=== PATIENT | male | born 1945 | race Caucasian/White ===

== ENCOUNTER → 2020-01-17 12:58 | Outpatient (BNVA) | payer OTHER, SELFPAY | PROVIDERS: PCP Emergency Medicine Emergency Medical Services; Visit Provider Internal Medicine Cardiovascular Disease | DX: E78.2 Mixed hyperlipidemia (principal); I25.810 Atherosclerosis of coronary artery bypass graft(s) without angina pectoris; I10 Essential (primary) hypertension; Z95.1 Presence of aortocoronary bypass graft | CPT/HCPCS: 80053; 80061; 83721 ==

== ENCOUNTER → 2021-04-16 08:10 | Outpatient (BNVA) | payer OTHER, SELFPAY | PROVIDERS: PCP Emergency Medicine Emergency Medical Services; Visit Provider Internal Medicine Cardiovascular Disease | DX: I10 Essential (primary) hypertension; Z95.1 Presence of aortocoronary bypass graft; E78.2 Mixed hyperlipidemia; I25.10 Atherosclerotic heart disease of native coronary artery without angina pectoris | CPT/HCPCS: 80061; 80076; 83721 ==

== ENCOUNTER → 2021-07-15 09:11 | Outpatient (BNVA) | payer OTHER, SELFPAY | PROVIDERS: PCP Emergency Medicine Emergency Medical Services; Visit Provider Internal Medicine Cardiovascular Disease | DX: I25.10 Atherosclerotic heart disease of native coronary artery without angina pectoris (principal); I10 Essential (primary) hypertension; E78.2 Mixed hyperlipidemia; Z95.1 Presence of aortocoronary bypass graft; Z87.891 Personal history of nicotine dependence | CPT/HCPCS: 99214 ==

== ENCOUNTER → 2022-07-14 10:12 | Outpatient (BNVA) | payer OTHER, SELFPAY | PROVIDERS: PCP Emergency Medicine Emergency Medical Services; Visit Provider Internal Medicine Cardiovascular Disease | DX: I10 Essential (primary) hypertension (principal); Z95.1 Presence of aortocoronary bypass graft; E78.2 Mixed hyperlipidemia; Z87.891 Personal history of nicotine dependence; Z79.82 Long term (current) use of aspirin | CPT/HCPCS: 99213 ==

== ENCOUNTER → 2022-11-28 10:05 | Outpatient (BNVA) | payer OTHER, SELFPAY | PROVIDERS: PCP Emergency Medicine Emergency Medical Services; Referring Provider Emergency Medicine Emergency Medical Services; Visit Provider Student in an Organized Health Care Education/Training Program | DX: M65.332 Trigger finger, left middle finger; M18.12 Unilateral primary osteoarthritis of first carpometacarpal joint, left hand | CPT/HCPCS: 73130; 99204 ==

== ENCOUNTER 2022-12-25 05:41 | Day surgery (SDC) | payer OTHER, SELFPAY ==
[2022-12-25 06:18] VITALS: BMI 28.1
[2022-12-25] MEDS: acetaminophen 1,000 MG/100 ML PIGGYBACK 400 MG IV (06:19)
[2022-12-25] MEDS: ketorolac 30 mg/mL INJ IVP (06:19)
[2022-12-25] MEDS: scopolamine 1.5 Patch 1 PATCH TRANSDERMA (06:23)
--- NOTE | 2022-12-25 06:23 | W.PM.OPSUD ---
Surgery/Procedure H&P Update DATE OF PROCEDURE: December 25, 2022 DATE H&P PERFORMED: 11/28/22 H&P UPDATE INFORMATION: I have reviewed H&P completed within last 30 days, I have examined patient prior to procedure and No changes to prior documentation PREOP DIAGNOSIS: Left middle finger trigger PRIMARY INDICATION FOR PROCEDURE: Left middle finger trigger PLANNED PROCEDURE: Operation Date: 12/25/22 07:00 Proposed Procedures p Trigger Finger Release(Left Middle Finger)(Left) - Maurisio Willoughby DO
[2022-12-25 06:30] VITALS: BP 132/77; PULSE 69; RESP 18; TEMP 36.8; O2SAT 99
--- NOTE | 2022-12-25 06:41 | ANES.PREANE2 ---
Pre-Anesthetic Assessment Height/Weight: Height 1.91 m Weight 102.058 kg Temp Pulse Resp BP Pulse Ox O2 Del Method 98.2 F 69 18 132/77 99 Room Air 12/25/22 06:30 12/25/22 06:30 12/25/22 06:30 12/25/22 06:30 12/25/22 06:30 12/25/22 06:30 Preop Diagnosis: Left middle finger trigger Operation Date: 12/25/22 07:00 Proposed Procedures p Trigger Finger Release(Left Middle Finger)(Left) - Maurisio Lanier, DO Familial anesthetic complications: None Was Beta Alex taken within 24 hours: N/A Was Clonidine taken within 24 hours: N/A Last intake: Intake Last Liquid Date 12/24/22 Last Liquid Time 21:00 Last Solid Date 12/24/22 Last Solid Time 16:00 Social No alcohol and No tobacco Exam alert, oriented x 3, clear to auscultation bilaterally and regular rate & rhythm Airway Mallampati: Class I Dentition: false CV/HEM Hypertension ICD and CABG X5 Metabolic Hyperlipidemia Anesthetic Plan ASA status: 3 Anesthesia: MAC Risk of > 500 ml blood loss (7ml/kg in children): No Medications/Allergies Home Medications Medication Instructions Recorded Confirmed Last Taken Type aspirin 81 mg tablet,delayed 81 mg PO DAILY 10/19/19 12/24/22 12/18/22 History release (Aspir-) carboxymethylcellulose sodium 0.5 1 drop ophthalmic (eye) BID 10/19/19 12/24/22 12/24/22 History % eye drops in a dropperette cetirizine 10 mg tablet (Allergy 5 mg PO DAILY PRN allergies 10/19/19 12/24/22 12/23/22 History Relief (cetirizine)) furosemide 20 mg tablet 20 mg PO DAILY 10/19/19 12/24/22 12/24/22 History ketotifen fumarate 0.025 % (0.035 1 drop ophthalmic (eye) BID 10/19/19 12/24/22 12/24/22 History %) eye drops lisinopril 5 mg tablet 2.5 mg PO DAILY 10/19/19 12/24/22 12/24/22 History metoprolol tartrate 50 mg tablet 50 mg PO BID 10/19/19 12/24/22 12/24/22 History nitroglycerin 0.4 mg sublingual 0.4 mg sublingual Q5M PRN chest 10/19/19 12/24/22 Unknown Rx tablet pain #25 tabs potassium chloride 20 mEq 20 meq PO DAILY 10/19/19 12/24/22 12/24/22 History tablet,extended release ezetimibe 10 mg tablet (Zetia) 10 mg PO DAILY #30 tabs 01/20/20 12/24/22 12/24/22 Rx cyclobenzaprine 10 mg tablet 10 mg PO BEDTIME 01/14/21 12/24/22 12/23/22 History multivitamin 1 tab PO DAILY 01/14/21 12/24/22 12/24/22 History rosuvastatin 10 mg tablet 10 mg PO DAILY #90 tabs 02/06/21 12/24/22 12/24/22 Rx coenzyme Q10 100 mg capsule (Co 100 mg PO DAILY 07/15/21 12/24/22 12/24/22 History Q-10) magnesium oxide 400 mg PO BID 07/15/21 12/24/22 12/24/22 History Vitamin D3 50 mcg PO DAILY 12/24/22 12/24/22 12/24/22 History ascorbic acid (vitamin C) 1,000 mg 1,000 mg PO DAILY 12/24/22 12/24/22 12/24/22 History tablet (Vitamin C) Allergies Allergy/AdvReac Type Severity Reaction Status Date / Time No Known Allergies Allergy Verified 12/24/22 10:44 Current Medications Generic Name Dose Route Start Last Admin Trade Name Freq PRN Reason Stop Dose Admin Scopolamine 1 patch 12/25/22 06:05 12/25/22 06:23 Scopolamine 1.5 Patch TRANSDERMA 1 patch ONCE PRN Administration anesthetic related nausea PFSH Anesthesia Medical History Coronary artery disease Hyperlipidemia Hypertension Prostate cancer Surgical History H/O circumcision H/O colonoscopy 2017 H/O foot surgery on toes H/O hand surgery H/O removal of cyst left axilla H/O shoulder surgery History of appendectomy History of tonsillectomy S/P CABG x 5 S/P trigger finger release Family History Grandfather Cancer Mother Cancer lung Other CAD (coronary artery disease) Diabetes FH: CABG (coronary artery bypass surgery) Hypertension ICD (implantable cardioverter-defibrillator) in place Myocardial infarction Denies family history of Anesthesia complication Social History Smoking and tobacco/nicotine status: former use of tobacco/nicotine Quit status (tobacco/nicotine): has quit using Year quit tobacco: 1991 Alcohol intake: current Alcohol intake frequency: holidays/special occasions only Substance/Drug Use: never Lives independently: Yes Marital status: Single Current occupational status: retired Data Anesthesia Cardiac Studies: No Data to Display
--- NOTE | 2022-12-25 06:43 | ECG_ITS ---
[facility] Test Date: 2022-12-25 Pat Name: Renaldo Askew Department: Room: Gender: Male Legal Counsel: : 1945 Requested By: Shagufta Dubon Order Number: [id number] Christian MD: Deep Cuellar M.D. Measurements Intervals [place] Rate: 62 P: -6 NM: 255 QRS: -28 QRSD: 131 T: -4 QT: 441 QTc: 449 Interpretive Statements SINUS RHYTHM WITH FIRST DEGREE AV BLOCK RIGHT BUNDLE BRANCH BLOCK [120+ ms QRS DURATION, UPRIGHT V1, 40+ ms S IN I/aVL/V4/V5/V6] INFERIOR MYOCARDIAL INFARCTION , PROBABLY OLD [40+ ms Q WAVE AND/OR ST/T ABNORMALITY IN II/aVF] No previous ECG available for comparison Electronically Signed On 12-26-2022 1:30:13 CDT by Deep Cuellar M.D. [id number]
[2022-12-25 07:47] LABS: Anion Gap 13.4 (5-19); Blood Urea Nitrogen 29 mg/dL (8-23); Calcium 9.5 mg/dL (8.5-10.5); Carbon Dioxide 27 mmol/L (22-29); Chloride 105 mmol/L (98-107); Glucose 107 mg/dL (65-115); Osmolality Calculated 298 mOsm/kg (285-295); Potassium 4.4 mmol/L (3.5-5.1); Sodium 141 mmol/L (136-145)
[2022-12-25] MEDS: ceFAZolin 2,000 MG in sodium chloride 0.9% (plus) 50 ML 100 MG IV (08:00)
[2022-12-25] MEDS: ROPivacaine 0.5% SDV 30 mL 25 MG INJECTION (08:15)
[2022-12-25] MEDS: BUPivacaine 0.5% INJ 10 mL 5 ML INJECTION (08:15)
[2022-12-25 08:56] VITALS: BP 157/79; PULSE 69; RESP 12; TEMP 36.2; O2SAT 99
--- NOTE | 2022-12-25 08:59 | P.BOP_ITS ---
Date of Procedure: 12/25/2022 Surgeon: Maurisio Willoughby DO Supervisor Housecleaner(s): None Procedure(s) performed: Left middle finger trigger release Findings of the procedure(s): Left middle finger trigger, procedure went as planned with left middle finger trigger release Estimated blood loss: 2 cc Specimen(s) removed: None Post-operative diagnosis: Left middle finger trigger
[2022-12-25 09:01] VITALS: BP 175/90; PULSE 69; RESP 15; O2SAT 98
[2022-12-25 09:06] VITALS: BP 174/84; PULSE 66; RESP 16; O2SAT 99
[2022-12-25 09:11] VITALS: BP 186/88; PULSE 65; RESP 16; TEMP 36.3; O2SAT 100
--- NOTE | 2022-12-25 09:12 | PM.OP ---
Operative Report Date of procedure: December 25, 2022 Pre-op diagnosis: Left middle finger trigger Surgeon: Maurisio Willoughby DO Procedure: Post-op diagnosis: Same Procedure done: Left middle finger?trigger?release Surgeon: Maurisio Willoughby DO Estimated blood loss: 2cc Tourniquet time 9mins Complications: None Condition: stable Disposition: same day Brief History: Patient's been seen and worked up in the outpatient setting and findings consistent with preoperative diagnosis of left middle finger?trigger.? He is failed conservative treatment.? Continues to have mechanical locking and catching.? Severe pain as well.? We talked about treatment options nonoperative versus operative intervention.? ?Patient understands the risk benefits complication alternatives of surgical nonsurgical treatment options.? Understanding his risks with surgery he elects proceed with surgical intervention.? Consent obtained in the office.? Here today to proceed with surgical intervention.? All questions answered. Procedure: Patient was seen and evaluated in the preoperative holding area.? Consent was reviewed and signed with patient.? Seen evaluated by Anesthesia Department.? Once cleared for surgery was brought back to the operative suite.? Placed in supine position on the OR table all bony prominences well-padded patient properly secured to the bed.? Patient's left arm was then placed to the armboard.? A nonsterile tourniquet applied to the left upper arm.? Patient's left upper extremity was then prepped and draped in standard orthopedic fashion.? Final timeout performed.? Patient received appropriate preoperative antibiotics. Esmarch tourniquet was used exsanguinate the left upper extremity tourniquet insufflated to 250 mmHg. Under sterile aseptic technique local digital block was performed to the left middle finger.? Once appropriately anesthetized a standard oblique incision was made centering over the A1 tosha following patient's flexor crease.? Sharp scalpel incision was made only through skin and then switched to Littler dissection scissors and spread longitudinally directly over the flexor tendon sheath.? I then mobilized both radially and ulnarly and Kasdan retractors were used and placed by my phlebotomist lab assistant to protect neurovascular bundle.? Next I visualized the A1 tosha and this was incised with a scalpel.? I then switched to dissection scissors and released the A1 tosha both proximally as well as distally to its entirety.? Significant tendon sheath fluid was noted consistent with inflammation.? Mild fraying of the flexor tendons noted but no tear.? At this point I utilized a rag nail and pulled the tendons FDS and FDP out of the incision and no?triggering was noted.? I then had anesthesia wake up the patient and patient was able to actively flex and extend with no?triggering.? This point thorough irrigation was performed.? Tourniquet deflated hemostasis satisfactory with bipolar.? I then subsequently closed the incision with interrupted nylon suture.? Xeroform 4 x 4's, Kerlix and an Thuan wrap was applied for a bulky soft dressing.? Patient was then subsequently awakened from anesthesia and taken to PACU in stable condition tolerated procedure without issues. Disposition: Patient taken back in stable condition recovering well.? Patient will receive appropriate discharge instruction as well as pain medication postoperatively.? Patient to follow-up with me in the office in 2 weeks for repeat evaluation and incision check.? Patient understands that any questions or concerns and contact the office.? All questions answered.
[2022-12-25 09:15] VITALS: BP 178/90; PULSE 68; RESP 18; TEMP 36.2; O2SAT 98
--- NOTE | 2022-12-25 09:45 | ANE.PACU2 ---
Inpatient post-anesthesia follow up: Airway intact: Yes Vital signs: Temperature 97.2 F Pulse Rate 68 Respiratory Rate 18 Blood Pressure 178/90 Pulse Oximetry 98 Oxygen Delivery Me thod Room Air Oxygen Flow Rate Fraction of Inspir ed Oxygen Hydration adequate: Yes Nausea and vomiting: No Pain level: 1 Mental status: Baseline
== END 2022-12-25 09:44 | disposition home or self-care (01) ==
PROVIDERS: Anesthesiology; PCP Emergency Medicine Emergency Medical Services; Visit Provider Student in an Organized Health Care Education/Training Program
PROC: (CPT 26055; principal; 2022-12-25 07:00)
DX: M65.332 Trigger finger, left middle finger (principal); I10 Essential (primary) hypertension; Z95.1 Presence of aortocoronary bypass graft; E78.5 Hyperlipidemia, unspecified; Z79.82 Long term (current) use of aspirin; I25.10 Atherosclerotic heart disease of native coronary artery without angina pectoris; Z85.46 Personal history of malignant neoplasm of prostate; Z87.891 Personal history of nicotine dependence
CPT/HCPCS: 26055; 36415; 80048; 93005; J0131; J0690; J1885; J2704; J2795; J3010; J3490

== ENCOUNTER 2023-01-13 06:00 | Outpatient (CLI) | payer OTHER, SELFPAY | END 2023-01-13 06:01 | disposition home or self-care (01) | LOC: SOT 01-15 09:34 | PROVIDERS: PCP Emergency Medicine Emergency Medical Services; Visit Provider Physician Assistant | DX: Z47.89 Encounter for other orthopedic aftercare (principal) | CPT/HCPCS: 97760; 99024; L3923 ==

== ENCOUNTER 2023-01-15 12:23 | Outpatient (RCR) | payer OTHER, SELFPAY | END 2023-02-05 23:59 | disposition home or self-care (01) | LOC: SOT 12:23 | PROVIDERS: PCP Emergency Medicine Emergency Medical Services; Visit Provider Physician Assistant | DX: Z47.89 Encounter for other orthopedic aftercare (principal); M65.332 Trigger finger, left middle finger | CPT/HCPCS: 97022; 97110; 97140; 97165 ==

== ENCOUNTER → 2023-01-27 14:06 | Outpatient (BNVA) | payer OTHER, SELFPAY | PROVIDERS: PCP Emergency Medicine Emergency Medical Services; Visit Provider Internal Medicine Cardiovascular Disease | DX: I25.10 Atherosclerotic heart disease of native coronary artery without angina pectoris (principal); I10 Essential (primary) hypertension; E78.2 Mixed hyperlipidemia; Z95.1 Presence of aortocoronary bypass graft; Z87.891 Personal history of nicotine dependence | CPT/HCPCS: 99214 ==

== ENCOUNTER 2023-02-22 21:43 | Emergency (ER) | payer OTHER, SELFPAY ==
[2023-02-22 21:48] VITALS: BP 200/107; PULSE 117; RESP 18; TEMP 38.1; O2SAT 96; BMI 28.3
--- NOTE | 2023-02-22 23:06 | XRR_ITS ---
PROCEDURE INFORMATION: Exam: XR Chest Exam date and time: 02/22/2023 11:11 PM Age: 77 years old Clinical indication: Fever and shortness of breath; Prior surgery; Surgery date: 6+ months; Surgery type: Cabg. Coronary stent; Patient HX: C/O SOB with fever; Additional info: SOA, SOA with fever TECHNIQUE: Imaging protocol: Radiologic exam of the chest. Views: 1 view. COMPARISON: No relevant prior studies available. FINDINGS: Lungs: Left lower lobe atelectasis or early infiltrate. Pleural spaces: Small right pleural effusion. No pneumothorax. Heart/Mediastinum: No cardiomegaly. Atherosclerotic disease of the thoracic aorta Bones/joints: Patient is status post median sternotomy.. Intraperitoneal space: There is no free intraperitoneal air. XR/XR chest 1V [id number] IMPRESSION: 1. Small right pleural effusion. 2. Left lower lobe atelectasis or early infiltrate.
--- NOTE | 2023-02-22 23:13 | ED_ITS ---
HPI - Fever 2 General: Chief Complaint: Fever Stated Complaint: fever,shakes,dry mouth Time Seen by Provider: 02/22/23 22:26 Source: patient Mode of arrival: ambulatory Limitations: no limitations History of Present Illness: Patient presents to the emergency department today for evaluation treatment of complaints of chills and chest tightness. Patient reports that after confucianism this afternoon he went to the grocery store. He states he came home and made lunch and this afternoon while resting began feeling chilled. He states he had a temperature of approximately 103 when he checked it but his temperature was lower upon arrival here in the ER. He states he was feeling somewhat tight in his chest and has had a little bit of coughing. He endorses nasal congestion but reports weeks of sinus drainage-especially at night while he is laying down. Patient is unsure of any known direct ill contacts but states he does go to the [facility] quite a bit. Patient has not had vomiting or diarrhea. He denies chest pains. Patient denies taking any Tylenol, ibuprofen, or cold medication prior to arrival. Patient does take blood pressure medications but states he often has episodes of acutely high and acutely low blood pressure readings. Review of Systems 2 General: Reports: 10 or more systems reviewed and unremarkable except in HPI and below PFSH ED 2 PFSH: Medical History Prostate cancer Coronary artery disease Hyperlipidemia Hypertension Surgical History H/O hand surgery History of appendectomy History of tonsillectomy H/O foot surgery on toes H/O shoulder surgery H/O colonoscopy 2018 H/O circumcision S/P trigger finger release H/O removal of cyst left axilla S/P CABG x 5 Family History Grandfather Cancer Mother Cancer lung Other CAD (coronary artery disease) Diabetes FH: CABG (coronary artery bypass surgery) Hypertension ICD (implantable cardioverter-defibrillator) in place Myocardial infarction Denies family history of Anesthesia complication Social History Smoking and tobacco/nicotine status: former use of tobacco/nicotine Quit status (tobacco/nicotine): has quit using Year quit tobacco: 1991 Alcohol intake: current Alcohol intake frequency: holidays/special occasions only Substance/Drug Use: never Lives independently: Yes Marital status: Single Current occupational status: retired Physical Exam 2 Const: COMMON NORMALS: no acute distress, patient oriented x3 and alert O THER: Patient is extremely social and pleasant. Eye: COMMON NORMALS: Equal, round and reactive pupils present, EOMs intact bilaterally and conjunctivae normal CONJUNCTIVA: Yes conjunctivae normal P UPIL: Yes Equal, round and reactive pupils present Neck/C-Spine: COMMON NORMALS: no JVD Lymph: LYMPHATIC: no lymphadenopathy noted Resp: COMMON NORMALS: normal respiratory effort, No retractions and No use of accessory muscles Cardio: COMMON NORMALS: no JVD and regular rate RATE: regular rate GI: OTHER: Abdomen soft. Normoactive bowel sounds. Nontender. : COMMON NORMALS: Yes no CVA tenderness BLADDER/KIDNEY EXAM: Yes no CVA tenderness Back/Pelvis: COMMON NORMALS: no CVA tenderness, thoracic and lumbar spine normal to inspection and thoraco-lumbar ROM normal Extremity: COMMON NORMALS: normal to inspection, full ROM and no pedal edema NARRATIVE EXTREMITY EXAM: Patient is independently ambulatory and weightbearing here throughout the department. Neuro: COMMON NORMALS: patient oriented x3 SENSORIUM/ORIENTATION: Yes alert Skin: COMMON NORMALS: no rashes or lesions noted and turgor normal GENERAL SKIN EXAM: no rashes or lesions noted and turgor normal Course 2 Vital Signs: Vital signs: Vital Signs Temperature 100.5 F H 02/22/23 21:48 Pulse Rate 97 02/22/23 23:30 Respiratory Rate 18 02/22/23 21:48 Blood Pressure 200/107 02/22/23 21:48 Pulse Oximetry 97 02/22/23 23:30 Oxygen Delivery Me thod Room Air 02/22/23 23:30 MDM - Fever Medical Decision Making Patient presented to the emergency department today with complaints of chills, fever, and cough. Chest x-ray was concerning for developing left lower lobe pneumonia. Patient reports he has had pneumonia several times in the past. He has had respiratory symptoms for quite some time but, only started having chills and fever tonight. Patient also tested positive for COVID. Discussed the different treatment options we have. First dose of doxycycline provided to the patient for his pneumonia here in the emergency department with the rest being sent to his pharmacy to be picked up and continued in the morning. However, with his past cardiac history, I do think would be a good idea for him to take the antiviral medication. Prescription for Paxlovid sent to the pharmacy to also be picked up and continued in the morning. Patient does have some cardiac medications which should be monitored while he is on Paxlovid so I did request he have an appointment/follow-up with his primary care doctor this week. I also requested he notify them of his COVID-positive status and pneumonia in the morning so they are aware. Patient is to increase his clear fluid intake. He tolerated p.o. here in the emergency department. He is also to continue monitoring his breathing. Patient should have a general recheck by his primary care doctor after course of illness is complete or, course of treatment is complete to make sure he is noticeably improved. However, in any acute worsening this is to be seen and reevaluated back here in the ER. Patient presented with elevated blood pressure readings however, multiple times at bedside patient had blood pressure readings 130s over 70s prior to discharge. Patient verbalizes understanding and agreement to treatment plan. Differential Diagnosis Unlikely abdominal pain, acute appendicitis, calculus of kidney, diverticulitis, gastroenteritis or small bowel obstruction Lab Data 02/22/23 23:02/22/23: Radiology Impressions Chest X-Ray 02/22/23: IMPRESSION: 1. Small right pleural effusion. 2. Left lower lobe atelectasis or early infiltrate. Laboratory Results WBC 8.14 10^3/uL (3.29-11.43) 02/22/23: RBC 4.79 10^6/uL (3.85-5.65) 02/22/23: Hgb 14.10 g/dL (11.27-16.99) 02/22/23: Hct 42.3 % (37-53) 02/22/23: MCV 88.3 fl (82-101) 02/22/23: MCH 29.4 pg (27-33) 02/22/23: MCHC 33.3 g/dL (30-55) 02/22/23: RDW 11.8 % (12.1-15.1) L 12/17/23 23:30 Plt Count 252 10^3/cmm (157-399) 02/22/23 23:30 MPV 9.6 fL (7.4-10.4) 02/22/23 23:30 Neut % (Auto) 76.2 % 02/22/23 23:30 Lymph % (Auto) 11.8 % 02/22/23 23:30 [place] % (Auto) 10.2 % 02/22/23 23:30 Eos % (Auto) 0.4 % 02/22/23 23:30 Baso % (Auto) 1.2 % 02/22/23 23:30 Neut # (Auto) 6.20 10^3/uL (1.8-7.7) 02/22/23: Lymph # (Auto) 1.0 10^3/uL (0.8-4.8) 02/22/23 23:30 [place] # (Auto) 0.8 10^3/uL (0.2-0.9) 02/22/23 23: Eos # (Auto) 0.0 10^3/uL (0.0-0.8) 02/22/23 23: Baso # (Auto) 0.1 10^3/uL (0.0-0.1) 02/22/23 23: Nucleated RBC % (auto) 0 % 02/22/23: Nucleated RBCs # 0.0 /100WBC 02/22/23 23:30 Sodium 137 mmol/L (136-145) 02/22/23 23:30 Potassium 4.2 mmol/L (3.5-5.1) 02/22/23 23:30 Chloride 102 mmol/L (98-107) 02/22/23 23:30 Carbon Dioxide 25 mmol/L (22-29) 02/22/23 23:30 Anion Gap 14.2 (5-19) 02/22/23 23:30 BUN 17 mg/dL (8-23) 02/22/23 23:30 Creatinine 1.4 mg/dL (0.7-1.2) H 02/22/23 23:30 GFR Calculation Not Reportable 02/22/23 23: Glucose 109 mg/dL (65-115) 02/22/23 23:30 Calculated Osmolality 286 mOsm/kg (285-295) 12/17/23 23:30 Calcium 9.2 mg/dL (8.5-10.5) 02/22/23 23:30 Total Bilirubin 0.4 mg/dL (0.15-1.2) 02/22/23 23:30 AST 39 U/L (0-40) 02/22/23 23:30 ALT 34 U/L (0-41) 02/22/23 23:30 Alkaline Phosphatase 86 U/L (40-130) 02/22/23 23:30 Total Protein 7.8 g/dL (6.6-8.7) 02/22/23 23:30 Albumin 4.5 g/dL (3.5-5.2) 02/22/23 23:30 Globulin 3.3 g/dL (1.3-4.6) 02/22/23 23:30 Urine Color Yellow (Yellow) 02/22/23 23:57 Urine Appearance Clear (CLEAR) 02/22/23 23:57 Urine pH 8 (5-7) H 02/22/23 23:57 Ur Specific [place] 1.010 (1.005-1.030) 02/22/23 23:57 Urine Protein Neg (Negative) 02/22/23 23:57 Urine Glucose (UA) Norm (Normal) 02/22/23 23:57 Urine Ketones Negative (Negative) 02/22/23 23:57 Urine Blood Neg (Negative) 02/22/23 23:57 Urine Nitrate Negative (Negative) 02/22/23 23:57 Urine Bilirubin Neg (Negative) 02/22/23 23:57 Urine Urobilinogen Norm mg/dL (Negative) 02/22/23 23:57 Ur Leukocyte Esterase Negative (Negative) 02/22/23 23:57 SARS-CoV-2 Ag (Rapid) positive (Negative) H 02/22/23 23:37 All radiology interpretation(s) finalized by discharge Discharge Plan Discharge Patient Disposition: Home Clinical Impression: COVID-19 CAP (community acquired pneumonia) Qualifiers: Laterality: left Lung location: lower lobe of lung Qualified Code(s): J18.9 - Pneumonia, unspecified organism Condition: Stable Prescriptions: New doxycycline hyclate 100 mg tablet 100 mg PO BID 10 Days Qty: 20 0RF Paxlovid 150-100 mg tablets,dose pack See Rx Instructions .ROUTE .COMPLEX Qty: 20 0RF Rx Instructions: orally per package directions benzonatate 100 mg capsule 100 mg PO TID Qty: 30 0RF No Action multivitamin Tablet 1 tab PO DAILY aspirin [Aspir-81] 81 mg tablet,delayed release (DR/EC) 81 mg PO DAILY carboxymethylcellulose sodium 0.5 % dropperette 1 drop ophthalmic (eye) BID cetirizine [Allergy Relief (cetirizine)] 10 mg tablet 5 mg PO DAILY PRN (Reason: allergies) furosemide 20 mg tablet 20 mg PO DAILY ketotifen fumarate 0.025 % (0.035 %) drops 1 drop ophthalmic (eye) BID metoprolol tartrate 50 mg tablet 50 mg PO BID potassium chloride 20 mEq tablet extended release 20 meq PO DAILY nitroglycerin 0.4 mg tablet, sublingual 0.4 mg SUBLINGUAL Q5M PRN (Reason: chest pain) Qty: 25 2RF Rx Instructions: do not exceed 3 doses per episode cyclobenzaprine 10 mg tablet 10 mg PO BEDTIME magnesium oxide 400 mg magnesium capsule 400 mg PO BID coenzyme Q10 [Co Q-10] 100 mg capsule 100 mg PO DAILY losartan 25 mg tablet 25 mg PO DAILY Qty: 90 3RF (DME) NIGHT SPLINT LEFT See Rx Instructions .Route .MEDSUPPLY Qty: 1 0RF Rx Instructions: As directed ezetimibe [Zetia] 10 mg tablet 10 mg PO DAILY Qty: 30 5RF rosuvastatin 10 mg tablet 10 mg PO DAILY Qty: 90 3RF Vitamin C 1,000 mg Tablet 1,000 mg PO DAILY Vitamin D3 50 mcg PO DAILY tramadol 50 mg tablet 50 mg PO Q6H PRN (Reason: pain) Qty: 20 0RF Discharge Orders: Discharge ED (Routine); Ordered 02/23/23 Ordered By: Belgica Santamaria Referrals: Kael Rivera DO [Primary Care Provider] - Discharge Diet: Usual diet Discharge Activity: Increase activity as tolerated Patient Instructions: Pneumonia (ED), COVID-19 (Coronavirus Disease 2019) (ED), COVID-19 and Chronic Health Conditions (ED), How to Recover from COVID-19 at Home (ED) Activity Restrictions/Additional Instructions: Lab work today is relatively unremarkable but chest x-ray is concerning for developing left lower lobe pneumonia. Your COVID test also came back positive. I do think this is why you are running fevers and feeling acutely worse- especially with tightness in your chest with findings of both pneumonia and COVID. However, your vital signs have remained stable here and your oxygen has been well within normal limits. We are starting you on medication to treat the pneumonia but I am also going to start you on the antiviral medication for COVID. You qualify for this medication as you have several underlying conditions including cardiac history which puts you at risk of more significant COVID symptoms and side effects. I would like you to touch base with your primary care doctor in the morning and let them know you tested positive for COVID and pneumonia as I think it would be a good idea to have either a virtual visit or at least a check-in with your doctor's office in a couple of days to check on you. However, if you acutely worsen with worsening chest pain, worsening cough, worsening shortness of breath or signs of respiratory distress need to be seen and reevaluated back here in the emergency department. You need to make it a priority to increase your clear fluid intake during this time as well. Coding Level of Care Code ED Formal Wear Rental Clerk for Germán Davila
[2023-02-22] MEDS: acetaminophen 1,000 MG/100 ML PIGGYBACK 400 MG IV (23:20)
[2023-02-22] MEDS: sodium chloride 0.9% 500 ML IV (23:20)
--- NOTE | 2023-02-22 23:24 | ECG_ITS ---
[facility] Test Date: 2023-02-22 Pat Name: Renaldo Askew Department: Room: Gender: Male Lab Assistant: : 1945 Requested By: Belgica Valdez Order Number: [id number] Christian MD: Deep Cuellar M.D. Measurements Intervals [place] Rate: 93 P: 23 RI: 220 QRS: -37 QRSD: 142 T: 17 QT: 370 QTc: 462 Interpretive Statements SINUS RHYTHM WITH FIRST DEGREE AV BLOCK POSSIBLE LEFT ATRIAL ENLARGEMENT [-0.1mV P-WAVE IN V1/V2] RIGHT BUNDLE BRANCH BLOCK [120+ ms QRS DURATION, UPRIGHT V1, 40+ ms S IN I/aVL/V4/V5/V6] INFERIOR MYOCARDIAL INFARCTION , PROBABLY OLD [40+ ms Q WAVE AND/OR ST/T ABNORMALITY IN II/aVF] Compared to ECG 12/25/2022 06:48:23 No significant changes Electronically Signed On 02-23-2023 15:55:41 PORTFOLIO LEAD by Deep Cuellar M.D. [id number]
[2023-02-22 23:30] VITALS: PULSE 97; O2SAT 97
[2023-02-22 23:37] LABS: Basophils # 0.1 10^3/uL (0.0-0.1); Basophils % 1.2 %; Eosinophils % 0.4 %; Hematocrit 42.3 % (37-53); Lymphocytes % 11.8 %; Mean Corpuscular HGB Conc 33.3 g/dL (30-55); Mean Corpuscular Hemoglobin 29.4 pg (27-33); Mean Corpuscular Volume 88.3 fl (82-101); Mean Platelet Volume 9.6 fL (7.4-10.4); Monocytes # 0.8 10^3/uL (0.2-0.9); Monocytes % 10.2 %; Neutrophils % 76.2 %; Nucleated Red Blood Cells % 0 %; Platelet Count 252 10^3/cmm (157-399); Red Blood Count 4.79 10^6/uL (3.85-5.65); Red Cell Distribution Width 11.8 % (12.1-15.1); White Blood Count 8.14 10^3/uL (3.29-11.43)
[2023-02-22 23:53] LABS: Alanine Aminotransferase 34 U/L (0-41); Albumin Level 4.5 g/dL (3.5-5.2); Alkaline Phosphatase 86 U/L (40-130); Blood Urea Nitrogen 17 mg/dL (8-23); Calcium 9.2 mg/dL (8.5-10.5); Carbon Dioxide 25 mmol/L (22-29); Chloride 102 mmol/L (98-107); Globulin 3.3 g/dL (1.3-4.6); Glucose 109 mg/dL (65-115); Osmolality Calculated 286 mOsm/kg (285-295); Sodium 137 mmol/L (136-145); Total Bilirubin 0.4 mg/dL (0.15-1.2); Total Protein 7.8 g/dL (6.6-8.7)
[2023-02-22 23:58] LABS: Anion Gap 14.2 (5-19); Aspartate Amino Transferase 39 U/L (0-40); Potassium 4.2 mmol/L (3.5-5.1)
[2023-02-23 00:08] LABS: Add Urine Microscopic? NO; Charge for UA Resulting for Rev
[2023-02-23 00:10] LABS: Urine Appearance Clear (CLEAR); Urine Color Yellow (Yellow); pH Urine 8 (5-7)
[2023-02-23 00:11] LABS: Bilirubin Urine Neg (Negative); Blood Urine Neg (Negative); Glucose Urine UA Norm (Normal); Ketones Urine Negative (Negative); Leukocyte Esterase Urine Negative (Negative); Nitrate Urine Negative (Negative); Protein Urine Neg (Negative); Urobilinogen Urine Norm (Negative)
[2023-02-23 00:22] LABS: SARS Covid-2 Antigen positive (Negative)
[2023-02-23 02:47] VITALS: BP 139/76; PULSE 94; TEMP 37.4; O2SAT 94
== END 2023-02-23 01:21 | disposition home or self-care (01) ==
PROVIDERS: Emergency Provider Physician Assistant; PCP Emergency Medicine Emergency Medical Services
DX: U07.1 COVID-19 (principal); J18.9 Pneumonia, unspecified organism; Z79.82 Long term (current) use of aspirin; Z87.891 Personal history of nicotine dependence; Z85.46 Personal history of malignant neoplasm of prostate; I25.10 Atherosclerotic heart disease of native coronary artery without angina pectoris; E78.5 Hyperlipidemia, unspecified; I10 Essential (primary) hypertension; Z95.1 Presence of aortocoronary bypass graft
CPT/HCPCS: 36415; 71045; 80053; 81003; 85025; 87426; 93005; 96374; 99284; J0131; J7040

== ENCOUNTER → 2023-04-09 07:41 | Outpatient (BNVA) | payer OTHER, SELFPAY | PROVIDERS: PCP Emergency Medicine Emergency Medical Services; Visit Provider Physician Assistant | DX: Z98.890 Other specified postprocedural states (principal) | CPT/HCPCS: 99213 ==

== ENCOUNTER 2023-04-30 07:13 | Outpatient (CLI) | payer OTHER, SELFPAY ==
--- NOTE | 2023-04-30 | ECG_ITS ---
[facility] Test Date: 2023-04-30 Pat Name: Renaldo Askew Department: Room: Gender: Male [employer] P[employer]asing Agent: Elda Leroy : 1945 Requested By: Harvinder Fish Order Number: [id number] Christian MD: Harvinder Fish M.D. Interpretive Statements NAME OF STUDY: LEXISCAN SESTAMIBI STRESS TEST INDICATION: [Chest Pain, ] Procedure: At the baseline, the blood pressure was 156/85 mmHg with a heart rate of 75 bpm. The electrocardiogram showed sinus rhythm with right bundle branch block with normal ST and T's. The Lexiscan was infused over a period of 20 seconds. A total of 0.4 mg of Lexiscan was infused. The stress phase was continued for a total of 5 minutes. Heart rate was at the end of stress phase was 85 bpm and a blood pressure of 141/81 mmHg. The EKG at the peak infusion revealed normal sinus rhythm with no significant ST-T wave changes. Sestamibi was injected 20 seconds after the Lexiscan infusion. Blood pressure at the end of recovery phase was 129/92 mmHg with a heart rate of 83 bpm. Conclusion: 1. Normal EKG response to Lexiscan infusion 2. No Lexiscan induced chest pain or cardiac arrhythmia. 3. Normal blood pressure and heart rate response. 4. Sestamibi/sestamibi perfusion scan pending; see separate report. Electronically Signed On 05-01-2023 12:30:20 BARGE HAND by Harvinder Fish M.D. [email or web address]
[2023-04-30 07:29] VITALS: BMI 28.1
--- NOTE | 2023-04-30 07:30 | NMCV_ITS ---
NM abram perf SPECT r/s* [id number] Renaldo Askew Age: 77 Gender: M : 1945 Exam Date: 04/30/2023 07:59 Ordering Phys: Harvinder Fish M.D ([email or web address]) Technologist: JUANITO Lee Exam Location: [facility] Indications: CHEST PAIN STRESS TEST [facility] IMAGE PROTOCOL Rest/Stress 1 Lexiscan Day Radiopharmaceutical Dose (mCi) Administration Site Administered by Rest: Tc-99m 10.4 IV JUANITO Rosales Sestamibi Stress:Tc-99m 32.6 IV JUANITO Rosales Sestamibi Rest: 30-Apr-2023 60 Discovery 630 Stress: 30-Apr-2023 30 Discovery 630 0.4mg Lexiscan. Images obtained in supine and prone position. SPECT RESULTS Technical Quality: Excellent Raw Data Analysis: Normal Image Corrections: No attenuation or motion correction applied Summed Stress Score: 11 Summed Rest Score: 11 Summed Difference Score: 0 PERFUSION FINDINGS There is large in size, moderate intensity, fixed perfusion defect in inferolateral and inferior quiros. 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 No significant area of ischemia. FUNCTIONAL RESULTS (calculated via Gated SPECT) Stress Image LV EF (%): 58 Stress EDV (mL):101 TID: 0.81 Stress ESV (mL):42 FUNCTIONAL FINDINGS: LV systolic function is normal IMPRESSIONS 1. 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 No evidence of significant ischemia. 2. LV systolic function is normal. Harvinder Fish MD (Electronically Signed) Final Date: 01 May 2023 13:00 S
[2023-04-30] MEDS: regadenoson 0.4 Mg/5 ml Syringe IVP (08:33)
[2023-04-30 08:39] VITALS: BP 129/92; PULSE 82
== END 2023-04-30 07:14 | disposition home or self-care (01) ==
LOC: CDL 07:14
PROVIDERS: PCP Emergency Medicine Emergency Medical Services; Visit Provider Internal Medicine
DX: R07.9 Chest pain, unspecified (principal); I25.2 Old myocardial infarction
CPT/HCPCS: 36415; 78452; 93017; 96374; A9500; J2785

== ENCOUNTER → 2023-08-27 09:44 | Outpatient (BNVA) | payer OTHER, SELFPAY | PROVIDERS: PCP Emergency Medicine Emergency Medical Services; Visit Provider Podiatrist Foot & Ankle Surgery | DX: I25.10 Atherosclerotic heart disease of native coronary artery without angina pectoris; M19.171 Post-traumatic osteoarthritis, right ankle and foot; I10 Essential (primary) hypertension; M20.41 Other hammer toe(s) (acquired), right foot; E78.2 Mixed hyperlipidemia; M20.21 Hallux rigidus, right foot; Z95.1 Presence of aortocoronary bypass graft; Z87.891 Personal history of nicotine dependence | CPT/HCPCS: 73610; 73630; 99203; 99213 ==

== ENCOUNTER → 2023-11-24 07:31 | Outpatient (BNVA) | payer OTHER, SELFPAY | PROVIDERS: PCP Emergency Medicine Emergency Medical Services; Visit Provider Podiatrist Foot & Ankle Surgery | DX: M79.671 Pain in right foot (principal); M25.571 Pain in right ankle and joints of right foot; M19.171 Post-traumatic osteoarthritis, right ankle and foot; M20.41 Other hammer toe(s) (acquired), right foot; M20.21 Hallux rigidus, right foot | CPT/HCPCS: 99213 ==

== ENCOUNTER → 2024-02-10 14:17 | Outpatient (BNVA) | payer OTHER, SELFPAY | PROVIDERS: PCP Emergency Medicine Emergency Medical Services; Visit Provider Internal Medicine Cardiovascular Disease | DX: I25.10 Atherosclerotic heart disease of native coronary artery without angina pectoris (principal); Z95.1 Presence of aortocoronary bypass graft; E78.5 Hyperlipidemia, unspecified; I11.0 Hypertensive heart disease with heart failure; I50.20 Unspecified systolic (congestive) heart failure; G62.9 Polyneuropathy, unspecified | CPT/HCPCS: 99213 ==

== ENCOUNTER → 2025-02-08 12:39 | Outpatient (BNVA) | payer OTHER, SELFPAY | PROVIDERS: PCP Emergency Medicine Emergency Medical Services; Visit Provider Internal Medicine Cardiovascular Disease | DX: I25.10 Atherosclerotic heart disease of native coronary artery without angina pectoris (principal); I10 Essential (primary) hypertension; E78.5 Hyperlipidemia, unspecified; Z87.891 Personal history of nicotine dependence | CPT/HCPCS: 99214 ==